=== PATIENT | male | born 1985 | race Caucasian/White ===

== ENCOUNTER 2016-10-22 23:35 | Emergency (ER) | payer SELFPAY ==
[~2016-10-22] VITALS: Ht 175.3 cm; Wt 87.5 kg
[2016-10-22 23:47] VITALS: BP 106/85
[2016-10-23] MEDS ORDERED: CLIN-44 PO (00:44)
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
== END 2016-10-23 00:58 | disposition home or self-care (01) ==
LOC: ER 23:35
DX: L03.116 Cellulitis of left lower limb (principal)
CPT/HCPCS: 99283

== ENCOUNTER → 2018-08-06 | Day surgery (SDC) | payer OTHER ==
[~2018-08-06] VITALS: Ht 175.3 cm; Wt 77.1 kg
[~2018-08-06] MED LIST: BACITRACIN TOPICAL OINT 14GM TUBE. TP ONE; BUPIVAC MPF-EPI 0.5%-1:200000 30 ML VIAL. ONE; CHLO15MO2 PO; CHLORHEXIDINE 0.12% 15 ML MOUTHWASH. ONE; CLIN150C14 PO; DEXAMETHASONE SOD PHOS 20 MG/5 ML VIAL. ONE; GLYCOPYRROLATE 1 MG/5 ML VIAL. ONE; HYDR-3164 PO; HYDROcodone/APAP 5/325MG 1 TAB TABLET PO PRN; HYDROmorphone 2 MG/ML VIAL IV PRN; IV RINGERS,LACTATED 1000ML 1,000 ML IV SCH; KETOROLAC 30 MG/ML INJ FOR OR. INJ ONE; LIDOCAINE 1% PF 2 ML VIAL. ID PRN; LIDOCAINE 2% PF Vial for OR 5 ML VIAL. ONE; MIDAZOLAM HCL/PF 2 MG/2 ML VIAL. ONE; MORPHINE SULFATE 4 MG/ML VIAL. IV PRN; NEOSTIGMINE 10 MG/10 ML VIAL. ONE; ONDANSETRON PF 4 MG/2 ML VIAL. IV PRN; ONDANSETRON PF 4 MG/2 ML VIAL. ONE; OXYMETAZOLINE 0.05% NASAL SPRAY 30ML BOTTLE. NS ONE; PROCHLORPERAZINE 10 MG/2 ML VIAL. IV PRN; PROPOFOL 20 ML IV ONE; ROCURONIUM 50 MG/5 ML VIAL. ONE; SEVOFLURANE > 120 MINUTES. IH ONE; fentaNYL PF VIAL 100 MCG/2 ML VIAL IV PRN; fentaNYL PF VIAL 100 MCG/2 ML VIAL ONE
--- NOTE | 2018-08-06 20:06 | PDOC4 ---
OPERATIVE NOTE Date: Date: Aug 06, 2018 Pre-Op Diagnosis: malunion lower right mandibular angle fracture Post-Op Diagnosis: malunion lower right mandibular angle fracture Procedure Performed: ORIF lower right mandibular angle fracture Surgeon: michael Anesthesia Type: McRobert Blood Loss: 50 ml Specimans Obtained: none Findings: malunion lower right mandibular angle fracture Complications: none Operative Note: ORIF malunion lower right mandibular angle fracture IMF that was previously placed was utilized YOLI MONCADA DMD Aug 06, 2018 20:06
[2018-08-06] MEDS: fentaNYL PF VIAL 100 MCG/2 ML VIAL IV PRN ×2 (20:22→20:38)
[2018-08-06 21:04] VITALS: BP 114/68
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
== END | disposition home or self-care (01) ==
LOC: SURG 14:29
PROVIDERS: ATTEND Dentist Oral and Maxillofacial Surgery
DX: S02.651A Fracture of angle of right mandible, initial encounter for closed fracture (principal); S02.66XA Fracture of symphysis of mandible, initial encounter for closed fracture; X58.XXXA Exposure to other specified factors, initial encounter; Y93.89 Activity, other specified; Y92.89 Other specified places as the place of occurrence of the external cause; Y99.8 Other external cause status; Z79.899 Other long term (current) drug therapy
CPT/HCPCS: 21462; A7015; C1713; J0696; J1100; J1885; J2001; J2250; J2405; J2704; J2710; J3010; J3490; J7120; A4461

== ENCOUNTER 2020-03-06 17:21 | Emergency (ER) | payer SELFPAY ==
[~2020-03-06] VITALS: Ht 175.3 cm; Wt 90.0 kg
[~2020-03-06 17:21] MED LIST changes: -BACITRACIN TOPICAL OINT 14GM TUBE. TP ONE; -BUPIVAC MPF-EPI 0.5%-1:200000 30 ML VIAL. ONE; -CHLORHEXIDINE 0.12% 15 ML MOUTHWASH. ONE; -DEXAMETHASONE SOD PHOS 20 MG/5 ML VIAL. ONE; -GLYCOPYRROLATE 1 MG/5 ML VIAL. ONE; -HYDROcodone/APAP 5/325MG 1 TAB TABLET PO PRN; -HYDROmorphone 2 MG/ML VIAL IV PRN; -IV RINGERS,LACTATED 1000ML 1,000 ML IV SCH; -KETOROLAC 30 MG/ML INJ FOR OR. INJ ONE; -LIDOCAINE 1% PF 2 ML VIAL. ID PRN; -LIDOCAINE 2% PF Vial for OR 5 ML VIAL. ONE; -MIDAZOLAM HCL/PF 2 MG/2 ML VIAL. ONE; -MORPHINE SULFATE 4 MG/ML VIAL. IV PRN; -NEOSTIGMINE 10 MG/10 ML VIAL. ONE; -ONDANSETRON PF 4 MG/2 ML VIAL. IV PRN; -ONDANSETRON PF 4 MG/2 ML VIAL. ONE; -OXYMETAZOLINE 0.05% NASAL SPRAY 30ML BOTTLE. NS ONE; -PROCHLORPERAZINE 10 MG/2 ML VIAL. IV PRN; -PROPOFOL 20 ML IV ONE; -ROCURONIUM 50 MG/5 ML VIAL. ONE; -SEVOFLURANE > 120 MINUTES. IH ONE; -fentaNYL PF VIAL 100 MCG/2 ML VIAL IV PRN; -fentaNYL PF VIAL 100 MCG/2 ML VIAL ONE
[2020-03-06 17:32] LABS: BASO # 0.1 x10^3/uL (0.0-0.2); BASO % 1 % (0-3); EOS # 0.2 x10^3/uL (0.0-0.7); EOS % 2 % (0-3); HEMATOCRIT 48.9 % (39.0-53.0); HEMOGLOBIN 16.6 g/dL (13.0-17.5); LYMPH # 3.7 x10^3/uL (1.0-4.8); LYMPH % 32 % (24-48); MEAN CORPUSCULAR HEMOGLOBIN 31 pg (25-35); MEAN CORPUSCULAR HGB CONC 34 g/dL (31-37); MEAN CORPUSCULAR VOLUME 90 fL (79-100); MONO # 1.7 x10^3/uL (0.0-1.1); MONO % 15 % (0-9); NEUT # 5.8 x10^3/uL (1.8-7.7); NEUT % 50 % (31-73); PLATELET COUNT 312 x10^3/uL (140-400); RED BLOOD COUNT 5.41 x10^6/uL (4.30-5.70); RED CELL DISTRIBUTION WIDTH 12.9 % (11.5-14.5); WHITE BLOOD COUNT 11.6 x10^3/uL (4.0-11.0)
[2020-03-06 17:39] LABS: CALCIUM 9.7 mg/dL (8.5-10.1); CREATININE 1.5 mg/dL (0.7-1.3)
[2020-03-06 17:45] LABS: ACETAMIN < 2 mcg/ml (10-30); ALBUMIN 4.2 g/dL (3.4-5.0); ALBUMIN/GLOBULIN RATIO 0.9 (1.0-1.7); SALIC < 2.8 mg/dL (2.8-20.0); TOTAL BILIRUBIN 0.3 mg/dL (0.2-1.0)
[2020-03-06 17:46] LABS: ETHANOL < 10 mg/dL (0-10)
--- NOTE | 2020-03-06 17:56 | RAD ---
EXAM: Chest, 2 views. HISTORY: Overdose. COMPARISON: None. FINDINGS: 2 views of the chest are obtained. There is no infiltrate, pleural effusion or pneumothorax. The heart is normal in size. There is a small nodule overlying the left lower lobe which may be a partially calcified granuloma. There are healed rib fractures. The heart is normal in size. There is a chronic nonunited left clavicle fracture. IMPRESSION: 1. No acute pulmonary finding. 2. Small left lower lobe pulmonary nodule, possibly due to healed granulomatous disease. Radiograph of follow-up is recommended to exclude a noncalcified nodule in this location. Electronically signed by: Inés Enamorado MD (03/06/2020 5:53 PM) [facility]
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
[2020-03-06 20:56] VITALS: BP 140/89
--- NOTE | 2020-03-07 08:02 | EKG ---
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
== END 2020-03-06 21:21 | disposition home or self-care (01) ==
LOC: ER 17:21
DX: T40.1X1A Poisoning by heroin, accidental (unintentional), initial encounter (principal); F15.10 Other stimulant abuse, uncomplicated; F17.200 Nicotine dependence, unspecified, uncomplicated; Z98.890 Other specified postprocedural states; Y92.89 Other specified places as the place of occurrence of the external cause
CPT/HCPCS: 36415; 71046; 80053; 80329; 85025; 93005; 99285; G0480

== ENCOUNTER 2021-11-17 20:55 | Inpatient (IN) | payer SELFPAY ==
[~2021-11-17] VITALS: Ht 172.7 cm; Wt 86.1 kg
[~2021-11-17 20:55] MED LIST changes: -CLIN150C14 PO; +CLIN150C16 PO
[2021-11-17 21:17] LABS: BASO # 0.1 x10^3/uL (0.0-0.2); BASO % 1 % (0-3); EOS # 0.2 x10^3/uL (0.0-0.7); EOS % 2 % (0-3); HEMATOCRIT 46.3 % (39.0-53.0); HEMOGLOBIN 15.7 g/dL (13.0-17.5); LYMPH # 3.6 x10^3/uL (1.0-4.8); LYMPH % 34 % (24-48); MEAN CORPUSCULAR HEMOGLOBIN 30 pg (25-35); MEAN CORPUSCULAR HGB CONC 34 g/dL (31-37); MEAN CORPUSCULAR VOLUME 89 fL (79-100); MONO # 1.3 x10^3/uL (0.0-1.1); MONO % 12 % (0-9); NEUT # 5.6 x10^3/uL (1.8-7.7); NEUT % 52 % (31-73); PLATELET COUNT 327 x10^3/uL (140-400); RED BLOOD COUNT 5.17 x10^6/uL (4.30-5.70); RED CELL DISTRIBUTION WIDTH 12.8 % (11.5-14.5); WHITE BLOOD COUNT 10.8 x10^3/uL (4.0-11.0)
[2021-11-17 21:29] LABS: CALCIUM 9.2 mg/dL (8.5-10.1); CREATININE 1.5 mg/dL (0.7-1.3); GFR 52.7; POTASSIUM 3.8 mmol/L (3.5-5.1)
[2021-11-17] MEDS ORDERED: IV NORMAL SALINE 1000ML BAG 1,000 ML IV ONE (21:30)
[2021-11-17 21:34] LABS: ALBUMIN 4.2 g/dL (3.4-5.0); ALBUMIN/GLOBULIN RATIO 0.9 (1.0-1.7); MAGNESIUM 2.9 mg/dL (1.8-2.4); TOTAL BILIRUBIN 0.3 mg/dL (0.2-1.0); TOTAL PROTEIN 8.8 g/dL (6.4-8.2)
[2021-11-17 21:35] LABS: ACETAMIN < 2 mcg/ml (10-30); ETHANOL < 10 mg/dL (0-10); SALIC 2.4 mg/dL (2.8-20.0)
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
[2021-11-17] MEDS ORDERED: CHARCOAL AQUA 25 GM/120 ML SUSPENSION. PO ONE (22:00)
--- NOTE | 2021-11-17 22:26 | RAD ---
Acute abdominal series: Reason for examination: Concerned for ingestion of drugs. Heart size is normal. Mediastinum is unremarkable. Lung holcomb are clear. No acute bony abnormalities are seen. In the abdomen, there is no gross organomegaly. Psoas muscles are symmetric. The bowel gas pattern is nonspecific and nonobstructive. No abnormal calcifications are seen. No radiopaque foreign bodies ar e identified. No acute bony abnormalities are seen. IMPRESSION: No acute cardiopulmonary disease. Nonspecific nonobstructive bowel gas pattern. Electronically signed by: Wendi Hewitt MD (11/17/2021 10:23 PM) AGNIESZKA
[2021-11-17] MEDS ORDERED: ONDANSETRON PF 4 MG/2 ML VIAL. IVP PRN (22:45)
[2021-11-17] MEDS ORDERED: IV NORMAL SALINE 1000ML BAG 1,000 ML IV SCH (23:00)
[2021-11-17] MEDS ORDERED: NALOXONE 0.4 MG/ML VIAL. IV PRN (23:30)
--- NOTE | 2021-11-17 23:47 | EKG ---
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
[2021-11-17 23:55] VITALS: BP 140/72
[2021-11-17 23:56] LABS: BARBITURATES NEG (NEG); BENZODIAZEPINES NEG (NEG); CANNABINOIDS POS (NEG); COCAINE NEG (NEG); METHADONE NEG (NEG); OPIATES NEG (NEG); PHENCYCLIDINE POS (NEG)
[2021-11-17 23:57] LABS: AMORPHOUS SEDIMENT,UR PRESENT /HPF; AMPHETAMINE/METHAMPHETAMINE POS (NEG); BACTERIA,URINE 0 /HPF (0-FEW); HYALINE CASTS, URINE FEW /HPF; RBC,URINE 0 /HPF (0-2); WBC,URINE 0 /HPF (0-4)
[2021-11-18 02:59] VITALS: BP 138/74
[2021-11-18] MEDS ORDERED: no home meds (06:49)
[2021-11-18 07:30] VITALS: BP 134/72
[2021-11-18] MEDS ORDERED: ONDANSETRON PF 4 MG/2 ML VIAL. IVP PRN (09:45)
[2021-11-18] MEDS ORDERED: CALCIUM CARBONATE 500 MG TAB.CHEW PO PRN (09:45)
[2021-11-18] MEDS ORDERED: ZOLPIDEM 5 MG TABLET. PO PRN (09:45)
[2021-11-18] MEDS ORDERED: HYDROcodone/APAP 5/325MG 1 TAB TABLET PO PRN (09:45)
[2021-11-18] MEDS ORDERED: MAG HYDROX/ALUMINUM HYD/SIMETH 30 ML ORAL.SUSP PO PRN (09:45)
[2021-11-18] MEDS ORDERED: ACETAMINOPHEN 325 MG TABLET. PO PRN (09:45)
[2021-11-18] MEDS ORDERED: MAGNESIUM HYDROXIDE 2,400 MG/30 ML ORAL.SUSP. PO PRN (09:45)
--- NOTE | 2021-11-18 10:23 | PDOC1 ---
History and Physical Date of Admission Date of Admission DATE: 11/18/21 TIME: 10:13 Identification/Chief Complaint Chief Complaint Drug overdose Source Source: Patient History of Present Illness History of Present Illness Patient is a 36-year-old male who presents in police custody with reports of ingesting a bag that contained methamphetamine, heroin, and PCP. Per patient report, each was less than 1 g. 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 In the ED patient reported nausea and abdominal pain. He denied any vomiting, diarrhea, or fever. Labs on admission showed creatinine 1.5. Urine toxicology was positive for methamphetamine, PCP, and cannabis. He was admitted for observation. Past Medical History Past Medical History Denies medical history Past Surgical History Past Surgical History Maxillofacial surgery Family History Family History Reviewed with patient and denies family history Social History Smoke: 1 pack per day ALCOHOL: heavy Drugs: Cocaine, Marijuana, Heroin, Crystal meth, Other Current Problem List Problem List Problems Medical Problems: (1) Drug overdose Status: Acute (2) In police custody Status: Acute Current Medications Current Medications Current Medications Sodium Chloride 1,000 ml @ 1,000 mls/hr 1X ONCE IV Last administered on 11/17/21at 21:23; Start 11/17/21 at 21:30; Stop 11/17/21 at 22:29; Status DC Charcoal (Actidose-Aqua) 25 gm 1X ONCE PO ; Start 11/17/21 at 22:00; Stop 11/17/21 at 22:01; Status DC Ondansetron HCl (Zofran) 4 mg PRN Q8HRS PRN IVP NAUSEA/VOMITING 1ST CHOICE; Start 11/17/21 at 22:45; Stop 11/18/21 at 22:44 Sodium Chloride 1,000 ml @ 100 mls/hr Q10H IV Last administered on 11/18/21at 01:12; Start 11/17/21 at 23:00; Stop 11/18/21 at 22:59 Naloxone HCl (Narcan) 0.4 mg PRN Q2MIN PRN IV SEE COMMENTS; Start 11/17/21 at 23:30 Ondansetron HCl (Zofran) 4 mg PRN Q6HRS PRN IVP NAUSEA/VOMITING; Start 11/18/21 at 09:45 Al Hydroxide/Mg Hydroxide (Mylanta Plus Xs) 30 ml PRN Q3HRS PRN PO HEARTBURN / GAS; Start 11/18/21 at 09:45 Calcium Carbonate/ Glycine (Tums) 500 mg PRN Q3HRS PRN PO UPSET STOMACH; Start 11/18/21 at 09:45 Zolpidem Tartrate (Ambien) 5 mg PRN QHS PRN PO INSOMNIA, MAY REPEAT IN 1HR; Start 11/18/21 at 09:45 Acetaminophen/ Hydrocodone Bitart (Lortab 5/325) 1 tab PRN Q4HRS PRN PO MILD PAIN 1-3; Start 11/18/21 at 09:45 Acetaminophen (Tylenol) 650 mg PRN Q6HRS PRN PO Headaches, Temp > 101.5F; Start 11/18/21 at 09:45 Magnesium Hydroxide (Milk Of Magnesia) 2,400 mg PRN Q12HR PRN PO CONSTIPATION; Start 11/18/21 at 09:45 Active Scripts Active Reported [no home meds] Allergies Allergies: Coded Allergies: No Known Drug Allergies (Unverified , 11/17/21) ROS Review of System GENERAL: No history of weight change, weakness or fevers. SKIN: No bruising, hair changes or rashes. EYES: No blurred, double or loss of vision. NOSE AND THROAT: No history of nosebleeds, hoarseness or sore throat. HEART: Denies chest pain, denies palpitations. LUNGS: Denies cough, hemoptysis, wheezing or shortness of breath. GASTROINTESTINAL: Denies nausea, vomiting, abdominal pain. GENITOURINARY: Denies dysuria, frequency, urgency, hematuria. NEUROLOGIC: Denies history of numbness, tingling, tremor or weakness. PSYCHIATRIC: Denies anxiety, denies depression. ENDOCRINE: No history of heat or cold intolerance, polyuria or polydipsia. EXTREMITIES: Denies muscle weakness, joint pain, pain on walking or stiffness. Physical Exam Physical Exam General: Alert, Oriented X3, Cooperative, No acute distress HEENT: PERRLA, EOMI Lungs: Clear to auscultation, Normal air movement Heart: RRR, no murmurs Cardiovascular: S1, S2 Abdomen: Normal bowel sounds, Soft, No tenderness Extremities: No clubbing, No cyanosis Skin: No rashes, No significant lesion Neuro: Normal speech, Normal tone, Sensation intact Psych/Mental Status: Mental status NL, Mood NL Vitals Vitals Vital Signs Date Time Temp Pulse Resp B/P (MAP) Pulse Ox O2 Delivery O2 Flow Rate FiO2 11/18/21 07:30 98.0 85 20 134/72 (92) 96 Room Air 98.0 Labs Labs Laboratory Tests Test 11/17/21 21:05 11/17/21 23:40 White Blood Count 10.8 x10^3/uL (4.0-11.0) Red Blood Count 5.17 x10^6/uL (4.30-5.70) Hemoglobin 15.7 g/dL (13.0-17.5) Hematocrit 46.3 % (39.0-53.0) Mean Corpuscular Volume 89 fL (79-100) Mean Corpuscular Hemoglobin 30 pg (25-35) Mean Corpuscular Hemoglobin Concent 34 g/dL (31-37) Red Cell Distribution Width 12.8 % (11.5-14.5) Platelet Count 327 x10^3/uL (140-400) Neutrophils (%) (Auto) 52 % (31-73) Lymphocytes (%) (Auto) 34 % (24-48) Monocytes (%) (Auto) 12 % (0-9) Eosinophils (%) (Auto) 2 % (0-3) Basophils (%) (Auto) 1 % (0-3) Neutrophils # (Auto) 5.6 x10^3/uL (1.8-7.7) Lymphocytes # (Auto) 3.6 x10^3/uL (1.0-4.8) Monocytes # (Auto) 1.3 x10^3/uL (0.0-1.1) Eosinophils # (Auto) 0.2 x10^3/uL (0.0-0.7) Basophils # (Auto) 0.1 x10^3/uL (0.0-0.2) Sodium Level 137 mmol/L (136-145) Potassium Level 3.8 mmol/L (3.5-5.1) Chloride Level 100 mmol/L (98-107) Carbon Dioxide Level 20 mmol/L (21-32) Anion Gap 17 (6-14) Blood Urea Nitrogen 18 mg/dL (8-26) Creatinine 1.5 mg/dL (0.7-1.3) Estimated GFR (Cockcroft-Gault) 52.7 BUN/Creatinine Ratio 12 (6-20) Glucose Level 94 mg/dL (70-99) Calcium Level 9.2 mg/dL (8.5-10.1) Magnesium Level 2.9 mg/dL (1.8-2.4) Total Bilirubin 0.3 mg/dL (0.2-1.0) Aspartate Amino Transf (AST/SGOT) 21 U/L (15-37) Alanine Aminotransferase (ALT/SGPT) 44 U/L (16-63) Alkaline Phosphatase 80 U/L (46-116) Total Protein 8.8 g/dL (6.4-8.2) Albumin 4.2 g/dL (3.4-5.0) Albumin/Globulin Ratio 0.9 (1.0-1.7) Salicylates Level 2.4 mg/dL (2.8-20.0) Salicylate Last Dose Date Unk Salicylate Last Dose Time Unk Acetaminophen Level < 2 mcg/ml (10-30) Acetaminophen Last Dose Date Unk Acetaminophen Last Dose Time Unk Ethyl Alcohol Level < 10 mg/dL (0-10) Urine Collection Type Void Urine Color (Auto) Light yellow Urine Turbidity Clear Urine pH (Auto) 7.0 (<5.0-8.0) Urine Specific [place] 1.018 (1.000-1.030) Urine Protein (Auto) Negative mg/dL (Negative) Urine Glucose (Auto)(UA) Negative mg/dL (Negative) Urine Ketones (Auto) Negative mg/dL (Negative) Urine Blood (Auto) Negative (Negative) Urine Nitrite Negative (Negative) Urine Bilirubin (Auto) Negative (Negative) Urine Urobilinogen (Auto) Normal mg/dL (Normal) Urine Leukocyte Esterase (Auto) Negative (Negative) Urine RBC 0 /HPF (0-2) Urine WBC 0 /HPF (0-4) Urine Squamous Epithelial Cells Occ /LPF Urine Amorphous Sediment Present /HPF Urine Bacteria 0 /HPF (0-FEW) Urine Hyaline Casts Few /HPF Urine Mucus Mod /LPF Urine Opiates Screen Neg (NEG) Urine Methadone Screen Neg (NEG) Urine Barbiturates Neg (NEG) Urine Phencyclidine Screen Pos (NEG) Urine Amphetamine/Methamphetamine Pos (NEG) Urine Benzodiazepines Screen Neg (NEG) Urine Cocaine Screen Neg (NEG) Urine Cannabinoids Screen Pos (NEG) Urine Ethyl Alcohol Neg (NEG) Laboratory Tests Test 11/17/21 21:05 11/17/21 23:40 White Blood Count 10.8 x10^3/uL (4.0-11.0) Red Blood Count 5.17 x10^6/uL (4.30-5.70) Hemoglobin 15.7 g/dL (13.0-17.5) Hematocrit 46.3 % (39.0-53.0) Mean Corpuscular Volume 89 fL (79-100) Mean Corpuscular Hemoglobin 30 pg (25-35) Mean Corpuscular Hemoglobin Concent 34 g/dL (31-37) Red Cell Distribution Width 12.8 % (11.5-14.5) Platelet Count 327 x10^3/uL (140-400) Neutrophils (%) (Auto) 52 % (31-73) Lymphocytes (%) (Auto) 34 % (24-48) Monocytes (%) (Auto) 12 % (0-9) Eosinophils (%) (Auto) 2 % (0-3) Basophils (%) (Auto) 1 % (0-3) Neutrophils # (Auto) 5.6 x10^3/uL (1.8-7.7) Lymphocytes # (Auto) 3.6 x10^3/uL (1.0-4.8) Monocytes # (Auto) 1.3 x10^3/uL (0.0-1.1) Eosinophils # (Auto) 0.2 x10^3/uL (0.0-0.7) Basophils # (Auto) 0.1 x10^3/uL (0.0-0.2) Sodium Level 137 mmol/L (136-145) Potassium Level 3.8 mmol/L (3.5-5.1) Chloride Level 100 mmol/L (98-107) Carbon Dioxide Level 20 mmol/L (21-32) Anion Gap 17 (6-14) Blood Urea Nitrogen 18 mg/dL (8-26) Creatinine 1.5 mg/dL (0.7-1.3) Estimated GFR (Cockcroft-Gault) 52.7 BUN/Creatinine Ratio 12 (6-20) Glucose Level 94 mg/dL (70-99) Calcium Level 9.2 mg/dL (8.5-10.1) Magnesium Level 2.9 mg/dL (1.8-2.4) Total Bilirubin 0.3 mg/dL (0.2-1.0) Aspartate Amino Transf (AST/SGOT) 21 U/L (15-37) Alanine Aminotransferase (ALT/SGPT) 44 U/L (16-63) Alkaline Phosphatase 80 U/L (46-116) Total Protein 8.8 g/dL (6.4-8.2) Albumin 4.2 g/dL (3.4-5.0) Albumin/Globulin Ratio 0.9 (1.0-1.7) Salicylates Level 2.4 mg/dL (2.8-20.0) Salicylate Last Dose Date Unk Salicylate Last Dose Time Unk Acetaminophen Level < 2 mcg/ml (10-30) Acetaminophen Last Dose Date Unk Acetaminophen Last Dose Time Unk Ethyl Alcohol Level < 10 mg/dL (0-10) Urine Collection Type Void Urine Color (Auto) Light yellow Urine Turbidity Clear Urine pH (Auto) 7.0 (<5.0-8.0) Urine Specific [place] 1.018 (1.000-1.030) Urine Protein (Auto) Negative mg/dL (Negative) Urine Glucose (Auto)(UA) Negative mg/dL (Negative) Urine Ketones (Auto) Negative mg/dL (Negative) Urine Blood (Auto) Negative (Negative) Urine Nitrite Negative (Negative) Urine Bilirubin (Auto) Negative (Negative) Urine Urobilinogen (Auto) Normal mg/dL (Normal) Urine Leukocyte Esterase (Auto) Negative (Negative) Urine RBC 0 /HPF (0-2) Urine WBC 0 /HPF (0-4) Urine Squamous Epithelial Cells Occ /LPF Urine Amorphous Sediment Present /HPF Urine Bacteria 0 /HPF (0-FEW) Urine Hyaline Casts Few /HPF Urine Mucus Mod /LPF Urine Opiates Screen Neg (NEG) Urine Methadone Screen Neg (NEG) Urine Barbiturates Neg (NEG) Urine Phencyclidine Screen Pos (NEG) Urine Amphetamine/Methamphetamine Pos (NEG) Urine Benzodiazepines Screen Neg (NEG) Urine Cocaine Screen Neg (NEG) Urine Cannabinoids Screen Pos (NEG) Urine Ethyl Alcohol Neg (NEG) Images Images PATIENT: SHIRA PETE ACCOUNT: [id number] : 1985 LOCATION: ER AGE: 36 SEX: M EXAM STATUS: PRE ER ORD. PHYSICIAN: RAUL BAUGH DO REASON: concern for ingestion of drugs PROCEDURE: ACUTE ABDOMEN SERIES Acute abdominal series: Reason for examination: Concerned for ingestion of drugs. Heart size is normal. Mediastinum is unremarkable. Lung holcomb are clear. No acute bony abnormalities are seen. In the abdomen, there is no gross organomegaly. Psoas muscles are symmetric. The bowel gas pattern is nonspecific and nonobstructive. No abnormal calcifications are seen. No radiopaque foreign bodies are identified. No acute bony abnormalities are seen. IMPRESSION: No acute cardiopulmonary disease. Nonspecific nonobstructive bowel gas pattern. VTE Prophylaxis Ordered VTE Prophylaxis Devices: No VTE Pharmacological Prophylaxi: No Assessment/Plan Assessment/Plan Drug overdose Polysubstance abuse ESTELA due to vasomotor nephropathy Plan: Plasma control was contacted in the ED, recommended supportive care and activated charcoal. Patient refused activated charcoal. Narcan and supplemental oxygen as needed IV fluids FEN - Regular diet PPX - SCDs FULL CODE Dispo - obs for above, however at the time of my documentation patient is trying to leave AMA. Justifications for Admission Other Justification EVELINA BATISTA MD November 18, 2021 10:23
--- NOTE | 2021-11-18 11:21 | NUR ---
Patient left his room and headed to the elevator shortly after 1000. He was caught at the elevator and returned to the unit to sign his AMA paperwork. He refused to stay in the hospital. Dr. Wolfe was on the floor and singed the paperwork as well. Tele was left in room and the patient left with security for the ER. I followed the patient to the ER and removed his IV. Patient was left in the ER with security aware of his presence.
== END 2021-11-18 10:20 | disposition left against medical advice (07) | DRG 917 ==
LOC: ER 20:55 → 6 SOUTH 22:30
PROVIDERS: ADMIT Family Medicine; ATTEND Family Medicine
DX: T50.991A Poisoning by other drugs, medicaments and biological substances, accidental (unintentional), initial encounter (principal); N17.0 Acute kidney failure with tubular necrosis; F17.210 Nicotine dependence, cigarettes, uncomplicated; B19.20 Unspecified viral hepatitis C without hepatic coma; F14.10 Cocaine abuse, uncomplicated; F11.10 Opioid abuse, uncomplicated; Z53.29 Procedure and treatment not carried out because of patient's decision for other reasons; F15.10 Other stimulant abuse, uncomplicated; Y92.89 Other specified places as the place of occurrence of the external cause
CPT/HCPCS: 36415; 74022; 80053; 80307; 80329; 81001; 83735; 85025; 93005; 96360; 96361; G0480; J7030; 99285-25; G0378